=== PATIENT | male | born 1955 | race Caucasian/White ===

== ENCOUNTER 2023-09-08 17:08 | Inpatient (IN) | payer OTHER ==
[~2023-09-08] VITALS: Ht 177.8 cm; Wt 92.2 kg
[~2023-09-08 17:08] MED LIST: ATOR40TA PO; LISI20 PO; METF500C PO; Ventolin/Prove6.7 GM INH
[2023-09-08 17:56] LABS: BASOPHILS ABSOLUTE AUTO 0.03 K/mm3 (0.00-0.23); BASOPHILS PERCENT AUTO 0 % (0-2); EOSINOPHILS ABSOLUTE AUTO 0.01 K/mm3 (0.00-0.68); EOSINOPHILS PERCENT AUTO 0 % (0-6); Hematocrit 51.6 % (37.0-53.0); Hemoglobin 17.4 g/dL (13.5-17.5); IMMATURE GRAN PERCENT AUTO 1 % (0-1); LYMPHOCYTES ABSOLUTE AUTO 0.66 K/mm3 (0.84-5.20); LYMPHOCYTES PERCENT AUTO 4 % (21-46); MONOCYTES ABSOLUTE AUTO 1.11 K/mm3 (0.16-1.47); MONOCYTES PERCENT AUTO 7 % (4-13); Mean Corpuscular HGB 30.9 pg (26.0-34.0); Mean Corpuscular HGB Conc 33.7 g/dL (31.5-36.5); Mean Corpuscular Volume 92 fL (80-100); Mean Platelet Volume 9.9 fL (9.1-12.4); NEUTROPHILS ABSOLUTE AUTO 13.02 K/mm3 (1.96-9.15); NEUTROPHILS PERCENT AUTO 87 % (41-73); Platelet Count 249 K/mm3 (150-400); RDW Coefficient Variation 13.1 % (11.7-14.2); RDW Standard Deviation 44.3 fL (35.1-46.3); Red Blood Cell Count 5.64 M/mm3 (4.30-5.90); White Blood Cell Count 14.93 K/mm3 (4.00-11.30)
[2023-09-08 17:59] LABS: Base Excess Venous -1.2 mmol/L; Bicarbonate Venous 22.5 mmol/L (24.0-30.0); PCO2 Venous 47.1 mmHg (38-42); pH Blood Venous 7.33 (7.34-7.37)
[2023-09-08 18:20] LABS: Source, Urine Foley catheter
[2023-09-08 18:25] LABS: Bilirubin, Urine Neg (Neg); Blood, Urine 4+ (Neg); Color, Urine Yellow (P-Yellow); Glucose Qualitative, Urine Neg (Neg); Ketones, Urine 2+ (Neg); Leukocyte Esterase, Urine Neg (Neg); Nitrite, Urine Neg (Neg); Protein, Urine 3+ (Neg); Specific Gravity, Urine 1.025 (1.003-1.022); Urobilinogen, Urine NORM (Normal)
[2023-09-08 18:29] LABS: Albumin, Blood 3.2 g/dL (3.4-5.0); Albumin/Globulin Ratio 0.7 (0.8-1.8); Bilirubin, Total 0.9 mg/dL (0.1-1.0); Bun/Creatinine Ratio 58.9 (12.0-20.0); Calcium, Blood 9.7 mg/dL (8.5-10.1); Creatinine, Blood 0.85 mg/dL (0.60-1.20); Globulin, Blood 4.8 g/dL (2.2-4.0)
[2023-09-08 18:37] LABS: Amorphous Light (0-Heavy); Appearance, Urine Hazy (Clear); Bacteria Many /hpf; Hyaline Casts 0-2 /lpf (0-2); Mucus Light (0-Heavy); Red Blood Cells, Urine 0-2 /hpf (0-2); Squamous Epithelial Cells Rare /hpf (Few); White Blood Cells, Urine 0-2 /hpf (0-5)
[2023-09-08] MEDS ORDERED: NS 1,000 ML IV SCH ×2 (18:55→19:35)
[2023-09-08] MEDS ORDERED: FLU VACC QS2023-24(6MOS UP)/PF 60 MCG/0.5 ML SYRINGE IM SCH (19:35)
[2023-09-08] MEDS ORDERED: Ondansetron HCl 2 MG / ML 2ML Vial IV PRN (19:40)
[2023-09-08] MEDS ORDERED: Albuterol 2.5 MG/3 ML VIAL INH PRN (19:40)
[2023-09-08] MEDS ORDERED: Aspirin 300 MG Supp PR SCH (20:00)
[2023-09-08] MEDS ORDERED: ATOR20 PO (20:27)
[2023-09-08] MEDS ORDERED: METF500 (20:54)
[2023-09-09] MEDS ORDERED: Insulin Human Lispro 100 Units/ML 3ML Syringe SC SCH
--- NOTE | 2023-09-09 01:43 | NUR ---
UPON ADMIT TO FLOOR PT WAS ON O2 6L/OXIMIZER SPO2 FLUCTUATING BETWEEN MID 80'S AND LOW 90'S. PT THEN BEGAN DESATURATING INTO LOW 80'S AND RT CALLED AND FACE MASK PLACED WITH O2 @ 12-15L. PT MAINTAINED SPO2 IN LOW TO MID 80'S. YANKEUR SUCTIONING PERFORMED WITH VERY THICK SECRETIONS SUCTIONED OUT. RT CALLED AGAIN AND DECISION TO PERFORM NT SUCTIONING MADE. HOSPITALIST CALLED AND ORDER FOR NT SUCTIONING AND AIRVO VENTILATION OBTAINED. AFTER NT SUCTIONING PERFORMED PT SPO2 MAINTAINING @ >90% ON COMBINED 30L, 15L OXIMIZER AND 15L FACE MASK.
[2023-09-09 03:53] VITALS: BP 157/80
[2023-09-09 05:49] LABS: Hematocrit 50.2 % (37.0-53.0); Hemoglobin 16.4 g/dL (13.5-17.5); Mean Corpuscular HGB 30.8 pg (26.0-34.0); Mean Corpuscular HGB Conc 32.7 g/dL (31.5-36.5); Mean Corpuscular Volume 94 fL (80-100); Mean Platelet Volume 10.4 fL (9.1-12.4); Platelet Count 197 K/mm3 (150-400); RDW Coefficient Variation 13.4 % (11.7-14.2); RDW Standard Deviation 46.6 fL (35.1-46.3); Red Blood Cell Count 5.32 M/mm3 (4.30-5.90); White Blood Cell Count 13.12 K/mm3 (4.00-11.30)
--- NOTE | 2023-09-09 06:23 | NUR ---
SHIFT SUMMARY NOC ADMIT FROM ED WITH DX OF ACUTE CVA WITH MIDLINE SHIFT. PT CAME TO UNIT SITTING UP WITH EYES OPEN. PT IS NON VERBAL SINCE CVA. PT BEGAN ON 6L/OXIMIZER AND INCREASED ALL THE WAY TO 30L 15L EACH OXIMIZER AND FACE MASK AFTER RT ASSESSED PT. PT WAS UNABLE TO MAINTAIN SPO2 > 88%. PT HAS VERY THICK SECRETIONS THAT REQUIRED NT SUCTIONING. AFTER SUCTIONING PT HAS BEEN ABLE TO MAINTAIN SPO2 > 92% AND HAS BEEN WEANED DOWN TO 15L BETWEEN OXIMIZER/FACE MASK. PT R SIDE HAS SEVERE DEFICIT AND IS FLACCID. PT HAS GAZE TO LEFT WITH BOTH EYES. INFUSION OF NS @ 200 ML/HR. PT IS Q6H CBG CHECK AND 0000 166 WITH I UNIT SHORT ACTING INSULING FOR COVERAGE. PT EX HAS REMAINED WITH PT SINCE ADMIT TO FLOOR. PT IS ON TELE RUNNING SINUS RHYTHM IN 80'S-90'S. HAS VIVEROS IN PLACE DRAINING TO GRAVITY. PT IS DNR AND HAS PALLIATIVE CARE CONSULT SCHEDULED FOR TODAY TO PLAN NEXT STEP FORWARD. PT IS CURRENTLY RESTING WITH BED ALARM ON, BED IN LOWEST POSITION, AND CALL LIGHT WITHIN REACH.
[2023-09-09 06:30] LABS: Bun/Creatinine Ratio 54.5 (12.0-20.0); Calcium, Blood 8.9 mg/dL (8.5-10.1); Creatinine, Blood 0.9 mg/dL (0.60-1.20); Potassium, Blood 4.9 mmol/L (3.5-5.5)
[2023-09-09] MEDS ORDERED: NS 1,000 ML IV SCH (08:10)
[2023-09-09 08:22] VITALS: BP 141/70
[2023-09-09 08:54] LABS: U Amphetamine Screen Not Detected; U Barbituate Screen Not Detected; U Benzodiazapine Screen Not Detected; U Buprenorphine Screen Not Detected; U Cannabinoids Screen Not Detected; U Cocaine Screen Not Detected; U Methadone Screen Not Detected; U Methamphetamine Screen Not Detected; U Opiates Screen Not Detected; U Oxycodone Screen Not Detected; U Phencyclidine Screen Not Detected
[2023-09-09] MEDS ORDERED: Enoxaparin 40 MG/0.4 ML SYR SC SCH (09:00)
[2023-09-09] MEDS ORDERED: Scopolamine Hydrobromide Patch TOP PRN (11:05)
[2023-09-09] MEDS ORDERED: LORazepam 1 MG Tab PO PRN (11:05)
[2023-09-09] MEDS ORDERED: Atropine Sulfate 1% Opth Soln 2ML BTL SL PRN (11:05)
[2023-09-09] MEDS ORDERED: Morphine Sulfate 20 MG/1ML 1 ML Oral Syringe SL PRN (11:05)
--- NOTE | 2023-09-09 11:09 | NUR ---
PALLATIVE CARE- FAMILY IN AGREEMENT FOR ОЛЬГА TO GO ONTO COMFORT CARE AND DISCHARGE WITH HOSPICE. UPDATED PROVIDER, ORDERS PLACED.
[2023-09-09] MEDS ORDERED: Pantoprazole Sodium 40 MG Injection IV SCH (11:55)
[2023-09-09] MEDS ORDERED: Nicotine 14 MG PATCH TOP SCH (11:55)
--- NOTE | 2023-09-09 13:57 | NUR ---
Spiritual care visit conducted. Patient is minimally responsive and surrounded by lifelong friends and family. I conduct a life review and learn, not only about the patient, but also about the lives, careers and spiritual beliefs of the those in the room. I hear about the family unit complications and the patient's heart and love (and onry-ness at times). I provide therapeutic listening, gentle job placement counselor and prayer. Family and friends responded well and showed signs of being comforted. I will continue to remain available.
[2023-09-09 15:55] VITALS: BP 106/57
--- NOTE | 2023-09-09 18:16 | NUR ---
SHIFT SUMMARY: PATIENT TRANSITIONED TO COMFORT CARE. NICOTINE PATCH PLACED FOR PT COMFORT. NON-RESPONSIVE TO PAIN OR VERBAL STIMULI, DOES REACT TO ORAL CARE WITH SUCTIONING BUT HAS NO GAG REFLEX. R PUPIL IS FIXED, L EYE HAS LEFT GAZE. VIVEROS DRAINING OLENA URINE WITH SEDIMENT. STILL USING O2 VIA OXYMIZER AT 5 L/MIN. HIS DAUGHTERS ARE HAVING A DIFFICULT TIME WITH THIS DIAGNOSIS AND THE PLAN FOR HOSPICE. NO OUTWARD SIGNS OF PAIN, BREATHING IS EVEN AND UNLABORED.
[2023-09-10] MEDS ORDERED: Pantoprazole Sodium 40 MG Injection IV SCH (06:00)
--- NOTE | 2023-09-10 06:04 | NUR ---
SHIFT SUMMARY NOC ON COMFORT CARE. PT UNRESPONSIVE. EX AT BEDSIDE. PT ONO2 5L OXIMIZER, 5L FACE MASK FOR COMFORT. VIVEROS IN PLACE DRAINING OLENA URINE TO GRAVITY. PT HAS NOT EXHIBITED THAT THEY ARE HAVING ANY PAIN. SUCTION DONE INTERMITTENTLY. PT IS CURRENTLY RESTING WITH BED IN LOWEST POSITION, AND CALL LIGHT WITHIN REACH.
[2023-09-10] MEDS ORDERED: Nicotine 14 MG PATCH TOP SCH (09:00)
--- NOTE | 2023-09-10 16:11 | NUR ---
"SPiritual Care Visit | Nurse Request Pt. is on comfort care and is not responsive. Family members including twin sister are at bedside and welcome my visit. Facilitate a lengthy life review. Family verbalized that juanito was not a central feature in the life of the Pt. Prayed for Pt. and the family . Family had some logistic questions regarding the Pts. discharge home on hospice, this audio/video technician let them know that someone form Palliaitive Care woould drop by and visit them. Family resumed more life story and in the process displayed evidence of being comforted by the spiritual care visit. Family verbalized gratitude for the spiritual care visit."
--- NOTE | 2023-09-10 17:14 | NUR ---
pt daughter and sibling in to visit. pt comfortable. review of hospice care iwht family. Daughter will be doing most of it and has amdical backround. therputic time with daughter. will continue supportive care.
--- NOTE | 2023-09-10 19:16 | NUR ---
SHIFT SUMMARY PT IS ON COMFORT CARE. MEDICATED FOR T[place]A WITH ROXANOL PER EMAR WITH GOOD EFFECT. IS UNRESPONSIVE. PIV INTACT & PATENT. F/C INTACT & PATENT TO GRAVITY KAMALJIT. PALLIATIVE CARE & CHEMICAL DEPENDENCY THERAPIST IN TO SEE FAMILY & PT. FAMILY HAS BEEN AT BEDSIDE MOST OF SHIFT.
--- NOTE | 2023-09-11 06:26 | NUR ---
SHIFT SUMMARY: PT IS ADMITTED FOR CVA AND IS A DNR. HE IS UNRESPONSIVE AND UNABLE TO MAKE HIS NEEDS KNOWN AT THIS TIME. HE IS CURRENTLY ON COMFORT CARE. 2P FOR ADLs. FOLLY IS PATENT AND DRAINING CLEAR YELLOW URINE. FAMILY AT BEDSIDE THROUGHOUT SHIFT.
[2023-09-11] MEDS ORDERED: ATROPINE SULFATE2 M1 SL (10:52)
[2023-09-11] MEDS ORDERED: MORP20L SL (10:54)
[2023-09-11] MEDS ORDERED: Ativan1 MG PO (10:55)
[2023-09-11] MEDS ORDERED: TRANSDERM-SCOP1 EA13 TD (10:56)
[2023-09-11] MEDS ORDERED: Nicoderm Cq1 EAC1 TOP (10:56)
--- NOTE | 2023-09-11 13:16 | NUR ---
1200- STRETCHER TRANSPORT, FAMILY AT BEDSIDE, PATIENT UNRESPONSIVE BASELINE FROM CVA
== END 2023-09-11 12:07 | disposition hospice, home (50) | DRG 65 ==
LOC: ER 17:08 → MEDS 19:32
PROVIDERS: Emergency Medicine; Nurse Practitioner Acute Care; ADMIT Internal Medicine
DX: I63.512 Cerebral infarction due to unspecified occlusion or stenosis of left middle cerebral artery (principal); G93.49 Other encephalopathy; M62.82 Rhabdomyolysis; R41.4 Neurologic neglect syndrome; I65.23 Occlusion and stenosis of bilateral carotid arteries; D72.829 Elevated white blood cell count, unspecified; Z51.5 Encounter for palliative care; Z66 Do not resuscitate; E11.9 Type 2 diabetes mellitus without complications; I10 Essential (primary) hypertension; J44.9 Chronic obstructive pulmonary disease, unspecified; R09.02 Hypoxemia; K21.9 Gastro-esophageal reflux disease without esophagitis; E78.00 Pure hypercholesterolemia, unspecified; G93.89 Other specified disorders of brain; R29.810 Facial weakness; R68.0 Hypothermia, not associated with low environmental temperature; F17.200 Nicotine dependence, unspecified, uncomplicated; Z79.84 Long term (current) use of oral hypoglycemic drugs
CPT/HCPCS: 31720; 36415; 51702; 70450; 71045; 80048; 80053; 81001; 82550; 82803; 82947; 84484; 85025; 85027; 87086; 93005; 93010; 93880; 94762; 96360-59; 96361-59; 99285-25; A9270; C9113; J1650; J7030